=== PATIENT | male | born 2000 | race Caucasian/White ===

== ENCOUNTER 2024-05-20 13:25 | Outpatient (AMB) | payer OTHER, SELFPAY ==
[2024-05-20 13:26] VITALS: BP 130/82; PULSE 60; O2SAT 97; BMI 34.8
--- NOTE | 2024-05-20 13:26 | A.OFFPC_ITS ---
Vital Signs 05/20/24 13:26 Height 5 ft 7 in Weight 222 lb BMI 34.8 BP 130/82 Blood Pressure Location Lt brachial Position Sitting Pulse 60 Pulse Source Pulse Oximeter Pulse Oximetry (%) 97 Oxygen Delivery Method Room Air Intake Visit Reasons: establish care Allergies No Known Allergies Allergy (Verified 05/20/24 13:41) Medication List - Last Reconciled 05/20/24 by Amelie Chau PA-C No Known Home Meds Tobacco use date assessed: 05/20/24 Dental Screening Dental Screen Date: 05/20/24 Did you have a dental visit in the last 12 months?: Yes Did you have a dental problem in the last 6 months where you did not have access to dental care?: No Was dental information given to patient?: Patient has dentist HPI establish care HPI Details 23-year-old male coming to the office fo r the 1st time. Previously stated pediatrics and has not been seen by an adult PCP. He was previously on Prozac and stimulant therapy for ADHD and anxiety and now follows with a therapist in [place] and is not on medication. He follows with [facility] and [place] for yearly eye exams. [facility] Medical History ADHD Surgical History H/O wisdom tooth extraction Social History Housing: Apartment Patient Tobacco Use Status: Never used Tobacco service: No Current occupational status: employed Cognitive needs: No Hearing needs: No Vision needs: No Questionnaire PHQ-9 Over the last 2 weeks, how often have you been bothered by any of the following problems? 1. Little interest or pleasure in doing things: several days 2. Feeling down, depressed, or hopeless: several days 3. Trouble falling or staying asleep, or sleeping too much: several days 4. Feeling tired or having little energy: several days 5. Poor appetite or overeating: several days 6. Feeling bad about yourself - or that you are a failure or have let yourself or your family down: several days 7. Trouble concentrating on things, such as reading the newspaper or watching television: several days 8. Moving or speaking so slowly that other people could have noticed. Or the opposite - being so fidgety or restless that you have been moving around a lot more than usual: several days 9. Thoughts that you would be better off or of hurting yourself in some way: not at all Total score: 8 Depression Screening Interpretation: Positive (decline meds at this time) Depression Screening Follow-up: Existing condition and In treatment Depression Screening Done: Yes 16849 - PHQ-9 Billing: Yes Source: Developed by Drs. Jossue Mcginnis, Saundra Mckenzie, Nazario Sylvester and colleagues, with an educational nancy from [employer]. Thrive Questionnaire Date Thrive assessed: 05/20/24 I am a: Patient What is your living situation today?: I have a steady place to live Within the past 12 months, did the food you bought not last and you didn't have the money to get more?: Never true Within the past 12 months, did you worry whether your food would run out before you got money to buy more?: Never true Do you have trouble paying for medicines?: No Do you have trouble getting transportation to medical appointments?: No Do you have trouble paying your heating and electricity bill?: No Do you have trouble taking care of your child, family member or friend?: No Do you have trouble with day-to-day activities such as bathing, preparing meals, shopping, managing finances, etc.?: I choose not to answer this question Are you currently unemployed and looking for a job?: No Are you interested in more education?: I choose not to answer this question THRIVE Score: 0 AUDIT C Alcohol Use Questionnaire (AUDIT-C) 1. How often do you have a drink containing alcohol?: 2-3 times a week 2. How many drinks containing alcohol do you have on a typical day when you are drinking?: 1 or 2 3. How often do you have six or more drinks on one occasion?: Less than monthly Total Score: 4 DELROY-7 AMB Questionnaire DELROY-7 Date DELROY - 7 assessed: 05/20/24 Feeling nervous, anxious, or on edge: 2 = More than half the days Not being able to stop or control worryin = Several days Worrying too much about different things: 2 = More than half the days Trouble relaxin = More than half the days Being so restless that it is hard to sit still: 2 = More than half the days Becoming easily annoyed or irritable: 1 = Several days Feeling afraid as if something awful might happen: 1 = Several days Total DELROY-7 score (0-4 normal; 5-9 mild; 10-14 moderate; 15-21 severe): 11 Source: Developed by Drs. Jossue Mcginnis, Saundra Mckenzie, Nazario Sylvester and colleagues, with an educational nancy from [employer]. DELROY-7 Assessment Billing DELROY-7 Assessment Tool: DELROY-7 Assessment 56302 Review of Systems Const Denies body aches, Denies fatigue, Denies fever(s), Denies frequent falls, Denies headache(s) and Denies weakness Eyes Reports no additional complaints and Denies change in vision ENT Denies dysphagia, Denies dizziness, Denies facial pain, Denies headache(s), Denies nasal congestion and Denies odynophagia Card Denies chest pain, Denies syncope, Denies irregular heart rhythm, Denies leg edema, Denies lightheadedness and Denies dyspnea Resp Denies cough and Denies dyspnea GI Denies abdominal pain, Denies constipation, Denies dysphagia, Denies dyspepsia, Denies diarrhea, Denies nausea, Denies odynophagia and Denies vomiting Denies dysuria, Denies urinary frequency, Denies urinary hesitancy and Denies urinary urgency Musc Denies back pain and Denies myalgias Skin/Breast Reports system reviewed and no additional complaints, except as documented Neuro Denies dizziness, Denies syncope, Denies frequent falls, Denies headache(s) and Denies weakness Psych Reports no additional complaints Endo Denies fatigue Physical exam (Primary Care) Vital Signs: Oxygen Delivery Method Room Air 05/20/24 13:26 BMI result Body Mass Index 34.8 BMI Assessment/Plan discussion: High BMI High, discussed plan: lifestyle, dietary and physical activity Tobacco/Smoking Status: Tobacco use Status Tobacco use date assessed 05/20/24 05/20/24 13:31 Patient Tobacco Use Status Never used Tobacco 05/20/24 13:31 Tobacco use type 05/20/24 13:31 PHQ-9: PHQ-9 Score PHQ-9: Total score 8 05/20/24 13:31 Depression Screening Interpretation: Positive (decline meds at this time) Depression Screening Follow-up: Existing condition and In treatment Thrive Assessment: Date of Thrive Assessment Date Thrive assessed 05/20/24 05/20/24 13:31 Const General: cooperative, healthy appearing, comfortable and no acute distress Orientation/consciousness: patient oriented x3 HENMT Head: Yes normocephalic Ears: hearing grossly normal bilaterally, external ears normal, TM's normal bilaterally and EAC's normal General nose exam: Normal external nose present Face and sinus: Yes normal facial exam and Yes sinuses nontender Mouth: Normal oral and palatal mucosa present and tongue normal Throat: Yes posterior oropharynx normal Eyes General: appearance normal, both eyes and all related structures Conjunctivae: conjunctivae normal Pupils: Equal, round and reactive pupils present EOM: EOMs intact bilaterally and No Nystagmus present Neck Neck: Yes normal visual inspection, Yes full ROM and Yes no lymphadenopathy Chest Chest palpation & inspection: normal inspection of the chest Resp Effort & Inspection: normal respiratory effort Auscultation: clear to auscultation bilaterally, no crackles, no rales, no rhonchi, no wheezes and breath sounds present Cardio Rate: regular rate Rhythm: regular rhythm Peripheral pulses: radial pulses present and dorsalis pedis present GI Inspection: Yes normal to inspection and No Abdominal wall edema Palpation (GI): Soft to palpation, not firm and nontender Auscultation: normal bowel sounds Rectal Exam - Male: Yes deferred General: Yes no CVA tenderness Back/Spine/Pelvis Back: no CVA tenderness Skin General skin exam: no rashes or lesions noted Neuro General: patient oriented x3 Cranial nerves: Yes Equal, round and reactive pupils present, Yes Midline tongue present, Yes Ability to bilaterally elevate shoulders present and No Nystagmus present Gait exam (Neuro): Normal gait present Extrem General: Yes normal to inspection, Yes full ROM, No no pedal edema and No edema Psych Speech and movement: Normal speech and movement present Affect: normal affect Insight: Good insight present (Psych) Judgement: Good judgement present (Psych) Coding Level of Care Code New Pt Prev Care 18-39yr([id number] Diagnoses Anxiety F41.9 Annual physical exam Z00.00 Additional Codes DELROY-7 Assessment Billing - DELROY-7 Assessment Tool: DELROY-7 Assessment 77767 ([id number]) PHQ-9 - 37576 - PHQ-9 Billing: Yes ([id number]) Assessment & Plan Assessment & Plan (1) Anxiety: Comment: Dr. Benites for counseling Code(s): F41.9 - Anxiety disorder, unspecified Category: Medical Plan: Continue to follow with counselor declining medication at this time. (2) Annual physical exam: Code(s): Z00.00 - Encounter for general adult medical examination without abnormal findings Category: Medical Plan: Patient is up-to-date on all recommended routine screenings and vaccinations for his age. Ordered for updated blood work and we will follow up on a yearly basis or sooner pending blood work results or if he has new problems. Plan This note was constructed using voice recognition software. While every effort has been made to ensure accuracy and molder pipe covering, still areas may have been included sometimes these areas may affect the content or meeting of the given symptoms. Total time spent caring for the patient today was 30 minutes. This includes time spent before the visit reviewing the chart, time spent during the visit, and time spent after the visit and documentation. Orders: Orders Vitamin B12 and Folate Today Z00.00 - Encounter for general adult medical examination without abnormal findings Vitamin D 25-OH (D2 and D3) Today Z00.00 - Encounter for general adult medical examination without abnormal findings Complete Blood Count Auto Diff Today Z00.00 - Encounter for general adult medical examination without abnormal findings Comprehensive Met. Panel Today Z00.00 - Encounter for general adult medical examination without abnormal findings
== END 2024-05-20 13:58 | disposition home or self-care (01) ==
DX: F41.9 Anxiety disorder, unspecified (principal); Z00.00 Encounter for general adult medical examination without abnormal findings

== ENCOUNTER → 2024-05-20 13:25 | Outpatient (BNVA) | payer OTHER, SELFPAY | DX: Z00.00 Encounter for general adult medical examination without abnormal findings (principal); F41.9 Anxiety disorder, unspecified | CPT/HCPCS: 96127 ==

== ENCOUNTER 2025-05-24 10:31 | Outpatient (AMB) | payer OTHER, SELFPAY ==
--- NOTE | 2025-05-24 10:43 | A.OFFPC_ITS ---
Vital Signs 05/24/25 10:47 Height 5 ft 7 in Weight 246 lb 8 oz BMI 38.6 BP 110/68 Blood Pressure Location Lt brachial Position Sitting Pulse 66 Pulse Source Pulse Oximeter Temp 97.3 F Temp Source Temporal Artery Scan Pulse Oximetry (%) 98 Oxygen Delivery Method Room Air Intake Visit Reasons: Annual Exam Intake Note: Patient is here today for a physical. Torch Heater Required: No Equipment Service Associate: Not Required per policy Accompanied by: Self / Same As Patient Allergies No Known Allergies Allergy (Verified 05/24/25 10:52) Medication List - Last Reconciled 05/24/25 by Amelie Chau PA-C No Known Home Meds Tobacco use date assessed: 05/24/25 Dental Screening Dental Screen Date: 05/24/25 Did you have a dental visit in the last 12 months?: No Did you have a dental problem in the last 6 months where you did not have access to dental care?: No Was dental information given to patient?: No HPI Annual Exam HPI Details 24-year-old male with past medical histo ry of anxiety coming to the office for annual exam. Presenting for his annual wellness visit. The patient reports recent onset of pain in his knees and back, which he attributes to his job at a [employer] that involves standing on concrete for extended periods. He uses insoles for the pain, but they are imperfectly effective. He also experiences pain in his hands that radiates to his elbow, along with numbness and tingling, which he believes is from overuse at work. The patient reports unintentional weight gain over the last year, which he feels has been exacerbated by a decrease in exercise and an increase in eating at restaurants. He previously lost 20-30 pounds by doing push-ups and sit-ups multiple days a week but has not maintained this routine. The patient reports significant stress from his job and continues to see a therapist. He is uncertain about starting psychotropic medication due to a negative past experience with Prozac, which he stopped after about a week due to side effects. He self-medicates with marijuana. eye doctor: [facility] yearly Vaccines: Td vaccine 2021, declined flu shot PFSH Medical History ADHD Surgical History H/O wisdom tooth extraction Family History Other Mental health disorder Substance use disorder Social History Housing: Apartment Alcohol intake: current Alcohol intake frequency: holidays/special occasions only Patient Tobacco Use Status: Never used Tobacco e-Cigarette/Vaping Use: Never Used Second Hand Smoke Exposure: No service: No Current occupational status: employed Cognitive needs: No Hearing needs: No Vision needs: Yes (Glasses) Questionnaire PHQ-9 Over the last 2 weeks, how often have you been bothered by any of the following problems? 1. Little interest or pleasure in doing things: several days 2. Feeling down, depressed, or hopeless: several days 3. Trouble falling or staying asleep, or sleeping too much: several days 4. Feeling tired or having little energy: several days 5. Poor appetite or overeating: several days 6. Feeling bad about yourself - or that you are a failure or have let yourself or your family down: several days 7. Trouble concentrating on things, such as reading the newspaper or watching television: several days 8. Moving or speaking so slowly that other people could have noticed. Or the opposite - being so fidgety or restless that you have been moving around a lot more than usual: several days 9. Thoughts that you would be better off or of hurting yourself in some way: not at all Total score: 8 Depression Screening Interpretation: Positive (counseling) Depression Screening Follow-up: Existing condition and In treatment Depression Screening Done: Yes 86252 - PHQ-9 Billing: Yes Source: Developed by Drs. Jossue Mcginnis, Saundra Mckenzie, Nazario Sylvester and colleagues, with an educational nancy from [employer]. Thrive Questionnaire Date Thrive assessed: 05/23/25 I am a: Patient What is your living situation today?: I have a steady place to live Within the past 12 months, did the food you bought not last and you didn't have the money to get more?: Never true Within the past 12 months, did you worry whether your food would run out before you got money to buy more?: Never true Do you have trouble paying for medicines?: No Do you have trouble getting transportation to medical appointments?: No Do you have trouble paying your heating and electricity bill?: No Do you have trouble taking care of your child, family member or friend?: No Do you have trouble with day-to-day activities such as bathing, preparing meals, shopping, managing finances, etc.?: No Are you currently unemployed and looking for a job?: No Are you interested in more education?: Yes Please select the resources that you would like help with: None Currently or been in a relationship where the following occur: I choose not to answer THRIVE Score: 0 AUDIT C Alcohol Use Questionnaire (AUDIT-C) 1. How often do you have a drink containing alcohol?: Monthly or less 2. How many drinks containing alcohol do you have on a typical day when you are drinking?: 1 or 2 3. How often do you have six or more drinks on one occasion?: Never Total Score: 1 Score Reviewed/Action Taken: Yes DELROY-7 AMB Questionnaire DELROY-7 Date DELROY - 7 assessed: 05/24/25 Feeling nervous, anxious, or on edge: 1 = Several days Not being able to stop or control worryin = Several days Worrying too much about different things: 1 = Several days Trouble relaxin = Several days Being so restless that it is hard to sit still: 1 = Several days Becoming easily annoyed or irritable: 1 = Several days Feeling afraid as if something awful might happen: 1 = Several days Total DELROY-7 score (0-4 normal; 5-9 mild; 10-14 moderate; 15-21 severe): 7 Source: Developed by Drs. Jossue Mcginnis, Saundra Mckenzie, Nazario Sylvester and colleagues, with an educational nancy from [employer]. DELROY-7 Assessment Billing DELROY-7 Assessment Tool: DELROY-7 Assessment 91492 Review of Systems Const Denies body aches, Denies fatigue, Denies fever(s), Denies frequent falls, Denies headache(s) and Denies weakness Eyes Reports no additional complaints, Denies change in vision and Reports requires corrective lenses ENT Denies dysphagia, Denies dizziness, Denies facial pain, Denies headache(s), Denies nasal congestion and Denies odynophagia Card Denies chest pain, Denies syncope, Denies irregular heart rhythm, Denies leg edema, Denies lightheadedness and Denies dyspnea Resp Denies cough and Denies dyspnea GI Denies constipation, Denies dysphagia, Denies dyspepsia, Denies diarrhea, Denies nausea, Denies odynophagia and Denies vomiting Denies dysuria, Denies urinary frequency, Denies urinary hesitancy and Denies urinary urgency Musc Details: occasional muscle aches Denies back pain and Denies myalgias Skin/Breast Reports system reviewed and no additional complaints, except as documented Neuro Denies dizziness, Denies syncope, Denies frequent falls, Denies headache(s) and Denies weakness Psych Reports no additional complaints Endo Denies fatigue Physical exam (Primary Care) Vital Signs: Last Vital Signs Temp 97.3 F 05/24/25 10:47 Pulse 66 05/24/25 10:47 BP 110/68 05/24/25 10:47 Pulse Ox 98 05/24/25 10:47 Oxygen Delivery Method Room Air 05/24/25 10:47 BMI result Body Mass Index 38.6 Tobacco/Smoking Status: Tobacco use Status Tobacco use date assessed 05/24/25 05/24/25 10:52 Patient Tobacco Use Status Never used Tobacco 05/24/25 10:51 Tobacco use type 05/20/24 13:58 e-Cigarette/Vaping Use Never Used 05/24/25 10:52 PHQ-9: PHQ-9 Score PHQ-9: Total score 8 05/24/25 12:38 Depression Screening Interpretation: Positive (counseling) Depression Screening Follow-up: Existing condition and In treatment Thrive Assessment: Date of Thrive Assessment Date Thrive assessed 05/23/25 05/24/25 10:45 Currently or been in a relationship where the following occur: I choose not to answer Const General: cooperative, healthy appearing, comfortable and no acute distress Orientation/consciousness: patient oriented x3 HENMT Head: Yes normocephalic Ears: hearing grossly normal bilaterally, external ears normal, TM's normal bilaterally and EAC's normal General nose exam: Normal external nose present Face and sinus: Yes normal facial exam and Yes sinuses nontender Mouth: Normal oral and palatal mucosa present and tongue normal Throat: Yes posterior oropharynx normal Eyes General: appearance normal, both eyes and all related structures Conjunctivae: conjunctivae normal Pupils: Equal, round and reactive pupils present EOM: EOMs intact bilaterally and No Nystagmus present Neck Neck: Yes normal visual inspection, Yes full ROM and Yes no lymphadenopathy Chest Chest palpation & inspection: normal inspection of the chest Resp Effort & Inspection: normal respiratory effort Auscultation: clear to auscultation bilaterally, no crackles, no rales, no rhonchi, no wheezes and breath sounds present Cardio Rate: regular rate Rhythm: regular rhythm Peripheral pulses: radial pulses present and dorsalis pedis present GI Inspection: Yes normal to inspection and No Abdominal wall edema Palpation (GI): Soft to palpation, not firm and nontender Auscultation: normal bowel sounds Rectal Exam - Male: Yes deferred General: Yes no CVA tenderness Back/Spine/Pelvis Back: no CVA tenderness Skin General skin exam: no rashes or lesions noted Neuro General: patient oriented x3 Cranial nerves: Yes Equal, round and reactive pupils present, Yes Midline tongue present, Yes Ability to bilaterally elevate shoulders present and No Nystagmus present Gait exam (Neuro): Normal gait present Extrem General: Yes normal to inspection, Yes full ROM, No no pedal edema and No edema Psych Speech and movement: Normal speech and movement present Affect: normal affect Insight: Good insight present (Psych) Judgement: Good judgement present (Psych) Coding Level of Care Code Est Pt Prev Care 18-39y([id number]) Diagnoses Annual physical exam Z00.00 Anxiety F41.9 Depression F32.A Obesity (BMI 30-39.9) E66.9 Insomnia G47.00 Numbness and tingling in both hands R20.0; R20.2 Marijuana use F12.90 Additional Codes DELROY-7 Assessment Billing - DELROY-7 Assessment Tool: DELROY-7 Assessment 29951 ([id number]) PHQ-9 - 98930 - PHQ-9 Billing: Yes ([id number]) Assessment & Plan Assessment & Plan (1) Annual physical exam: Code(s): Z00.00 - Encounter for general adult medical examination without abnormal findings Category: Medical Plan: Patient is up-to-date on all recommended routine screenings and vaccinations for his age. I did ordered for updated blood work. Plan to follow up yearly or sooner as needed. Healthy diet and regular exercise is encouraged. (2) Anxiety: Comment: Dr. Benites for counseling Code(s): F41.9 - Anxiety disorder, unspecified Category: Medical Plan: The patient reports significant job-related stress and is hesitant about pharmacotherapy due to negative past experiences with Prozac and dexmethylphenidate. He will continue with his current therapist. Information on Wellbutrin was provided as a non-SSRI, non-stimulant alternative that does not typically cause weight gain and can also treat ADHD. The patient will consider this option and follow up if he decides to start medication. He is advised to reach out as needed for this concern. (3) Depression: Code(s): F32.A - Depression, unspecified Category: Medical Plan: See above (4) Obesity (BMI 30-39.9): Code(s): E66.9 - Obesity, unspecified Category: Medical Plan: Healthy diet and regular exercise is encouraged. Referral was placed to nutrition today. (5) Insomnia: Code(s): G47.00 - Insomnia, unspecified Category: Medical Plan: The patient reports sleeping only 5-7 hours per night, which is affecting him. He was counseled on proper sleep hygiene, including maintaining a consistent schedule, avoiding screens and food before bed, and limiting fluid intake at night. Ahon-wxx-[id number] options such as magnesium, melatonin, and diphenhydramine were suggested as potential aids. (6) Numbness and tingling in both hands: Code(s): R20.0 - Anesthesia of skin; R20.2 - Paresthesia of skin Category: Medical Plan: The patient reports hand pain with numbness and tingling, consistent with carpal tunnel syndrome, exacerbated by his work activities. The plan is to start conservative management by wearing wrist splints at night to allow the inflamed area to rest and heal. The patient was also counseled on activity modification, such as lifting objects close to his body. He was advised to follow up for an orthopedics referral if symptoms worsen, particularly if he experiences weakness or dropping items. (7) Marijuana use: Code(s): F12.90 - Cannabis use, unspecified, uncomplicated Category: Social Hx Plan: The patient uses marijuana daily to manage stress, which may be contributing to occasional chest pain and shortness of breath. While long-term studies on marijuana are lacking, the patient was counseled that inhaling smoke is not healthy for the lungs. We discussed the importance of cutting back and reducing marijuana use Plan This note was constructed using voice recognition software. While every effort has been made to ensure accuracy and paper machine supervisor, still areas may have been included sometimes these areas may affect the content or meeting of the given symptoms. Total time spent caring for the patient today was 30 minutes. This includes time spent before the visit reviewing the chart, time spent during the visit, and time spent after the visit and documentation. Patient was informed and verbally consented to the use of an ambient scribe for clinic note documentation during this visit. Orders: Orders TSH reflex Free T4 Today Z13.29 - Encounter for screening for other suspected endocrine disorder Vitamin B12 and Folate Today Z13.21 - Encounter for screening for nutritional disorder Vitamin D 25-OH Total Today Z13.21 - Encounter for screening for nutritional disorder Comprehensive Met. Panel Today Z00.00 - Encounter for general adult medical examination without abnormal findings Complete Blood Count Auto Diff Today Z13.0 - Encounter for screening for diseases of the blood and blood-forming organs and certain disorders involving the immune mechanism Referrals [employer] Nutrition Referral E66.9 - Obesity, unspecified
[2025-05-24 10:47] VITALS: BP 110/68; PULSE 66; TEMP 36.3; O2SAT 98; BMI 38.6
== END 2025-05-24 11:28 | disposition home or self-care (01) ==
LOC: HO.HMCH 10:32
DX: Z00.00 Encounter for general adult medical examination without abnormal findings (principal); F41.9 Anxiety disorder, unspecified; F32.A Depression, unspecified; E66.9 Obesity, unspecified; G47.00 Insomnia, unspecified; R20.0 Anesthesia of skin; R20.2 Paresthesia of skin; F12.90 Cannabis use, unspecified, uncomplicated; Z68.38 Body mass index [BMI] 38.0-38.9, adult

== ENCOUNTER → 2025-05-24 10:31 | Outpatient (BNVA) | payer OTHER, SELFPAY | DX: Z00.00 Encounter for general adult medical examination without abnormal findings (principal); F41.9 Anxiety disorder, unspecified; F32.A Depression, unspecified; E66.9 Obesity, unspecified; G47.00 Insomnia, unspecified; R20.0 Anesthesia of skin; R20.2 Paresthesia of skin; F12.90 Cannabis use, unspecified, uncomplicated; Z68.38 Body mass index [BMI] 38.0-38.9, adult | CPT/HCPCS: 96127 ==